=== PATIENT | male | born 1940 | race Caucasian/White ===

== ENCOUNTER 2017-04-06 02:46 | Emergency (ER) | payer MEDICARE ==
[~2017-04-06] VITALS: Ht 170.2 cm; Wt 122.7 kg
[2017-04-06] MEDS ORDERED: LISI-661 PO (03:17)
[2017-04-06] MEDS ORDERED: ISOS30TA6 PO (03:17)
[2017-04-06] MEDS ORDERED: LINA5TAB PO (03:17)
[2017-04-06] MEDS ORDERED: GLIP10 PO (03:17)
[2017-04-06] MEDS ORDERED: CARV12 PO (03:17)
[2017-04-06] MEDS ORDERED: FURO40I IM (03:17)
[2017-04-06] MEDS ORDERED: ATOR40TA28 PO (03:17)
[2017-04-06 04:23] LABS: BASOPHILS % (AUTO) 0.5 % (0.0-2.0); EOSINOPHILS % (AUTO) 2.6 % (1.0-6.0); HEMATOCRIT 42.7 % (41-53); HEMOGLOBIN 14.4 g/dL (13.5-17.5); LYMPHOCYTES # (AUTO) 1.9 K/uL (1.0-4.8); LYMPHOCYTES % (AUTO) 20.9 % (22.0-44.0); MEAN CORPUSCULAR HEMOGLOBIN 31.2 pg (26.0-34.0); MEAN CORPUSCULAR HGB CONC 33.7 G/dL (31.0-37.0); MEAN CORPUSCULAR VOLUME 93 fL (80-100); MONOCYTES % (AUTO) 11.4 % (2.0-9.0); NEUTROPHILS # (AUTO) 5.8 K/uL (1.8-7.7); NEUTROPHILS % (AUTO) 64.6 % (40.0-70.0); PLATELET COUNT (AUTO) 137 K/uL (150-450); RED BLOOD CELL COUNT(AUTO) 4.61 MIL/uL (4.50-5.90); RED CELL DISTRIBUTION WIDTH 13.3 % (11.5-14.5); WHITE BLOOD COUNT (AUTO) 8.9 K/uL (4.5-11.0)
[2017-04-06 04:34] LABS: ANION GAP 7 mmol/L (8-16); CALCIUM, TOTAL 9.1 mg/dL (8.8-10.5); CARBON DIOXIDE 29 mmol/L (22-29); CHLORIDE 101 mmol/L (98-107); GLOMERULAR FILTR. RATE CALC 31 mL/min (>60); POTASSIUM 5.2 mmol/L (3.5-5.1); SODIUM SERUM 137 mmol/L (136-145); UREA NITROGEN, BLOOD 58 mg/dL (7-18)
[2017-04-06 04:45] LABS: B-TYPE NATRIURETIC PEPTIDE 211 pg/mL (0-100)
[2017-04-06 04:58] LABS: ALANINE AMINOTRANSFERASE 25 U/L (12-78); ALBUMIN 3.7 g/dL (3.4-5.0); ASPARTATE AMINOTRANSFERASE 12 U/L (15-37); BILIRUBIN,TOTAL 0.9 mg/dL (0.1-1.0); CREATINE KINASE MB 2.2 ng/mL (0-5); CREATINE KINASE, TOTAL 99 U/L (39-308); TOTAL PROTEIN, SERUM 7.2 g/dL (6.4-8.2)
[2017-04-06 05:07] LABS: PROTHROMBIN TIME 10.8 SEC (9.4-11.6)
[2017-04-06] MEDS ORDERED: NITROGLYCERIN 2% (1 GM=INCH) PACKET TP ONE (06:30)
[2017-04-06] MEDS ORDERED: ASPIRIN 81 MG CHEWABLE TABLET PO ONE (06:30)
[2017-04-06] MEDS ORDERED: ONDANSETRON HCL 4 MG/2 ML VIAL IVP PRN (07:45)
[2017-04-06] MEDS ORDERED: 0.9% SODIUM CHLORIDE 10 ML SYRINGE IVP PRN (07:45)
[2017-04-06] MEDS ORDERED: ACETAMINOPHEN 325 MG TABLET PO PRN (07:45)
[2017-04-06 08:13] LABS: GLUCOSE COMMENT 1 Repeated; GLUCOSE,POINT OF CARE 193 MG/DL (70-110)
[2017-04-06 09:32] VITALS: BP 111/69
== END 2017-04-06 09:36 | disposition left against medical advice (07) ==
LOC: EMS 02:48 → UNDOADMIN 07:50 → 5N 07:50 → EMS 09:36
DX: R07.89 Other chest pain (principal); Z95.1 Presence of aortocoronary bypass graft; Z90.49 Acquired absence of other specified parts of digestive tract
CPT/HCPCS: 82962; 93005; 99285